=== PATIENT | male | born 1970 | race Caucasian/White ===

== ENCOUNTER 2018-03-20 07:43 | Day surgery (SDC) | payer OTHER ==
[2018-03-17 10:05] VITALS: BMI 33.7
[2018-03-20] MEDS ORDERED: LIDOCAINE HCL 2% (20ML MULTI-DOSE VIAL) NR ONE (08:39)
[2018-03-20] MEDS ORDERED: ceFAZolin SODIUM 1 GM VIAL ONE (08:48)
[2018-03-20] MEDS ORDERED: LIDOCAINE HCL/PF 2% SDV 5ML VIAL ONE (08:48)
[2018-03-20] MEDS ORDERED: PROPOFOL 20 ML ONE ×2 (08:48)
[2018-03-20] MEDS ORDERED: MIDAZOLAM HCL 2 MG/2 ML SINGLE DOSE VIAL ONE (08:49)
[2018-03-20] MEDS ORDERED: ceFAZolin SODIUM 1 GM VIAL IVPB ONE (09:02)
[2018-03-20] MEDS ORDERED: LIDOCAINE 1%/EPI 1:100000 (50 ML MULTI DOSE VIAL) PNB ONE (09:25)
[2018-03-20] MEDS ORDERED: LIDOCAINE 1%/EPI 1:100000 (50 ML MULTI DOSE VIAL) NR ONE (09:30)
[2018-03-20] MEDS ORDERED: KETOROLAC TROMETHAMINE 30 MG/1 ML VIAL ONE (09:33)
[2018-03-20] MEDS ORDERED: oxyCODONE HCL 5 MG TABLET PO PRN (09:54)
[2018-03-20] MEDS ORDERED: ACETAMINOPHEN 500 MG TABLET (FP) PO PRN (09:54)
[2018-03-20] MEDS ORDERED: ONDANSETRON 4 MG/2 ML VIAL IVPUSH PRN (09:54)
[2018-03-20] MEDS ORDERED: LACTATED RINGERS SOLUTION 1,000 ML IV SCH ×2 (10:00)
[2018-03-20 12:34] VITALS: BP 110/71; PULSE 60; TEMP 98.4
--- NOTE | 2018-03-20 14:34 | OP ---
DATE OF OPERATION: 03/20/2018 SURGICAL ATTENDING: Rei Gunter MD PREOPERATIVE DIAGNOSIS: Right posterolateral neck mass. POSTOPERATIVE DIAGNOSIS: Right posterolateral neck mass. ANESTHESIA: Local with sedation. PROCEDURE: Excision of right neck mass. DESCRIPTION OF PROCEDURE: The patient was taken into the operating room and placed in a supine position, given IV sedation, IV antibiotics, prepped and draped in the usual sterile fashion. The right posterolateral neck mass was identified. Local anesthesia was injected. An elliptical incision including the skin overlying the surrounding the neck mass was excised down to subcutaneous tissues and muscle. The accessory nerve was identified and preserved. Hemostasis was achieved with electrocautery. The wound was then closed in 2 layers. Sterile dressings and Dermabond were placed. The patient was then extubated, awakened, and taken to recovery in stable condition. Dr. Gunter, the attending surgeon, was present throughout the entire procedure. REI GUNTER M.D. [id number]
--- NOTE | 2018-03-21 14:03 | PATH ---
Surgical Pathology Report Patient Name: SHANE LEE Med. Rec. #: [id number] /Age/Gender: 1970 (Age: 48) / M Account: [id number] Location: [facility] SURGICAL Taken: 03/20/2018 Received: 03/20/2018 Reported: 03/21/2018 Physicians: Jerry Nogueira M.D. Specimen(s) Received RIGHT LATERAL NECK MASS Clinical History Right lateral neck mass Final Diagnosis MASS, LATERAL NECK, RIGHT, EXCISION: RUPTURED AND INFLAMED EPIDERMAL INCLUSION CYST. Electronically Signed Kalie Cortes M.D. Gross Description Received in formalin labeled "right lateral neck mass" is a skin ellipse and underlying subcutaneous tissue which measures 4.5 x 2 cm, excised to a depth of 2 cm. The specimen is undesignated. Surgical margins are inked in blue. Skin surface shows a 0.2 cm papular lesion. Which on cut section, connects to a 1 x 0.3 cm variegated, white-johnson, firm, lesion with surrounding erythema. The lesion abuts the inked radial margin and 1.5 cm from the deep margin. The entire lesion and tips are submitted in 6 cassettes as follows: 1-5- lesion, 6- tips. MLSZ/03/20/2018 sanml/03/20/2018
== END 2018-03-20 12:20 | disposition home or self-care (01) ==
LOC: JASU-SURG 07:43
PROVIDERS: ATTEND Surgery
PROC: 0JB40ZZ Excision of Right Neck Subcutaneous Tissue and Fascia, Open Approach (ICD-10-PCS; principal; 2018-03-20 08:30)
DX: L72.0 Epidermal cyst (principal); I10 Essential (primary) hypertension; E11.9 Type 2 diabetes mellitus without complications; Z79.84 Long term (current) use of oral hypoglycemic drugs
CPT/HCPCS: 82962; 88304-TC; 94760